=== PATIENT | male | born 1965 | race Caucasian/White ===

== ENCOUNTER → 2017-02-19 | Outpatient (CLI) | payer BC ==
[~2017-02-19] MED LIST: ASPI81TA28 PO; ESCI10TA17 PO; OMEP20TA PO; SIMV20TA2 PO
[2017-02-19 10:00] LABS: ALT/SGPT 39 U/L (12-78); AST/SGOT 21 U/L (15-37); BLOOD UREA NITROGEN 13 mg/dl (7-18); BUN/CREATININE RATIO 11.7 (10-20); CALCIUM 9.1 mg/dl (8.5-10.1); CARBON DIOXIDE 28 mmol/L (21-32); CHLORIDE 107 mmol/L (98-107); GLUCOSE 93 mg/dl (70-99); POTASSIUM 3.9 mmol/L (3.5-5.1); SODIUM 142 mmol/L (136-145)
[2017-02-19 10:03] LABS: ALB/GLOB RATIO 1.3 (0.9-2); ALKALINE PHOSPHATASE 81 U/L (45-117); CHOLESTEROL 174 mg/dl (0-200); CHOLESTEROL/HDL RATIO 5.1; HDL CHOLESTEROL 34 mg/dl; LDL CHOLESTEROL CALCULATED 110 mg/dl; TRIGLYCERIDES 149 mg/dl (0-150); VERY LOW DENSITY LIPOPROT CALC 30 mg/dl
== END | disposition home or self-care (01) ==
LOC: C.LAB 06:49
PROVIDERS: ATTEND Nurse Practitioner Family
DX: E78.00 Pure hypercholesterolemia, unspecified (principal)

== ENCOUNTER → 2017-03-31 | Outpatient (CLI) | payer BC ==
[~2017-03-31] MED LIST changes: +OPTIRAY 320 IV PRN
--- NOTE | 2017-03-31 09:52 | DIAGNOSTIC IMAGING REPORT ---
(CHEST) THORAX WITH HISTORY: 51 years Male PULMONARY NODULE follow-up study. COMPARISON: Chest radiographs 03/29/2009. No comparison chest CT is available at time of dictation. TECHNIQUE: Multiple axial CT images of the chest were obtained following the intravenous administration of 93 mL Optiray 320. FINDINGS: No dominant thyroid nodule is identified. Scattered calcified lymph nodes in the mediastinum are consistent with prior granulomatous disease. Heart is normal in size. Thoracic aorta appears to be within normal limits. There is no pneumothorax or pleural effusion. There is mild biapical pleural-parenchymal scarring. 4 mm noncalcified pulmonary nodule of the lateral basal segment left lower lobe is seen on image 200 of the thin section axial images. A 4 mm noncalcified pulmonary nodules also present within the apicoposterior segment left upper lobe on image 69 of the thin section axial series. There is a 4 mm noncalcified pulmonary nodule of the right upper lobe seen on image 98 of the axial series with adjacent mild tree-in-bud nodularity and groundglass opacities within this distribution suggesting associated bronchiolitis. 6 mm noncalcified nodule seen within the lateral basal segment right lower lobe on image 198. No large pulmonary nodules or masses are identified. Central airways are patent. Imaged upper abdominal structures are within normal limits. Soft tissues are unremarkable. The bones appear intact. IMPRESSION: 1. Several scattered noncalcified pulmonary nodules within the bilateral lungs are seen, largest of which measures 6 mm within the lateral basal segment right lower lobe. No CT is available for comparison at time of dictation. Follow-up according to the guidelines below is needed. 2. No acute cardiopulmonary process. 3. Scattered calcified mediastinal adenopathy compatible with prior granulomatous disease. Please refer to below summary of Fleischner criteria recommendations for follow-up of incidental CT nodules (Marina Martínez, Guidelines for management of small pulmonary nodules detected on CT scans: A statement from the Fleischner Society, Radiology 237: [phone].) SOLID NODULES Multiple nodules size: <6 mm * Low risk patients: no routine follow-up * high risk patients: optional CT at 12 months Note: newly detected indeterminate nodule in persons 35 years of age or older. * Low risk patients: minimal or absent history of smoking and/or other known risk factors * high risk patients: history of smoking or of other known risk factors (e.g. first degree relative with lung cancer, or exposure to asbestos, radon, uranium) * if a nodule up to 8 mm is partly solid or is ground glass further follow-up is required after 24 months to exclude possible slow growing adenocarcinoma (SVETLANA) The above report was generated using voice recognition software. It may contain grammatical, syntax or spelling errors. Electronically signed by: Freedom Flores M.D. 03/31/2017 9:50 AM Dictated Date/Time: 03/31/2017 9:40 AM
== END | disposition home or self-care (01) ==
LOC: C.CTS 09:03
PROVIDERS: ATTEND Nurse Practitioner Family
DX: R91.8 Other nonspecific abnormal finding of lung field (principal)

== ENCOUNTER → 2017-04-13 | Day surgery (SDC) | payer BC ==
[2017-03-31 09:56] VITALS: Ht 170.2 cm; Wt 68.2 kg
[~2017-04-13] VITALS: Ht 170.2 cm; Wt 68.2 kg
[~2017-04-13] MED LIST changes: +LIDOCAINE HCL 2% 2 ML VIAL (20MG/ML) ONE; -OPTIRAY 320 IV PRN; +PROPOFOL IV EMULSION 10 MG/ML 20 ML VIAL IV ONE
--- NOTE | 2017-04-13 14:12 | Endo History and Physical ---
History & Physical Date of Service: Apr 13, 2017. Chief Complaint: dysphagia,esophageal reflux disease Referring Physician: EDWARD Trinidad III History of Present Illness 52 yo CM who presents for EGD secondary to GERD and dysphagia. Past Surgical History Hx Cardiac Surgery: No Hx Internal Defibrillator: No Hx Pacemaker: No Hx Abdominal Surgery: No Hx of Implantable Prosthesis: No Hx Post-Op Nausea and Vomiting: No Hx Cancer Surgery: No Hx Thoracic Surgery: No Hx Orthopedic: No Hx Urinary Tract Surgery: No Family History None Social History Smoking Status: Never Smoker Hx Substance Use: No Hx Alcohol Use: No Allergies Coded Allergies: Penicillins (Verified Allergy, Mild, UNKNOWN - HAPPENED A CHILD, ) Current Medications Reported Home Medications Medications Dose Route/Sig Max Daily Dose Days Date Category Aspirin Ec (Aspirin) 81 Mg Tab 81 Mg PO DAILY 03/31/17 Reported Zocor (Simvastatin) 20 Mg Tab 20 Mg PO QPM 03/31/17 Reported Omeprazole 20 Mg Tab 1 Tab PO QAM 03/31/17 Reported Lexapro (Escitalopram Oxalate) 10 Mg Tab 10 Mg PO QAM 03/29/09 Reported Vital Signs Weight (Kilograms): 68.18 Height (Feet): 5 Height (Inches): 7 Date Time Temp Pulse Resp B/P (MAP) Pulse Ox O2 Delivery O2 Flow Rate FiO2 04/13/17 13:55 36.6 74 16 113/74 (87) 96 Room Air Physical Exam General Appearance: WD/WN, no apparent distress Respiratory/Chest: Auscultation: breath sounds normal Cardiovascular: Heart Auscultation: RRR Abdomen: Bowel Sounds: normal Inspection & Palpation: soft, non-distended, no tenderness, guarding & rebound Assessment and Plan Assessment: 52 yo CM who presents for EGD secondary to GERD and dysphagia. Plan: Proceed with EGD.
--- NOTE | 2017-04-13 14:40 | GI REPORT ---
Procedure Date: 04/13/2017 2:17 PM Procedure: Upper GI endoscopy Indications: Dysphagia, Suspected gastro-esophageal reflux disease Medicines: Monitored Anesthesia Care Complications: No immediate complications. Estimated Blood Loss: Estimated blood loss: none. Procedure: Pre-Anesthesia Assessment: - Prior to the procedure, a History and Physical was performed, and patient medications and allergies were reviewed. The patient's tolerance of previous anesthesia was also reviewed. The risks and benefits of the procedure and the sedation options and risks were discussed with the patient. All questions were answered, and informed consent was obtained. Prior Anticoagulants: The patient has taken aspirin, last dose was 1 day prior to procedure. ASA Grade Assessment: II - A patient with mild systemic disease. After reviewing the risks and benefits, the patient was deemed in satisfactory condition to undergo the procedure. After obtaining informed consent, the endoscope was passed under direct vision. Throughout the procedure, the patient's blood pressure, pulse, and oxygen saturations were monitored continuously. The scope was introduced through the mouth, and advanced to the second part of duodenum. The upper GI endoscopy was accomplished without difficulty. The patient tolerated the procedure well. Findings: A non-obstructing Schatzki ring (acquired) was found at the gastroesophageal junction. Biopsies were taken with a cold forceps for histology. A small hiatus hernia was present. The examined duodenum was normal. Impression: - Non-obstructing Schatzki ring. Biopsied. - Small hiatus hernia. - Normal examined duodenum. Recommendation: - Resume previous diet. - Continue present medications. - Await pathology results. - Return to GI clinic as previously scheduled. Louie Berger, DO 04/13/2017 2:39:30 PM This report has been signed electronically. Note Initiated On: 04/13/2017 2:17 PM I attest to the content of the Intraoperative Record and orders documented therein, exceptions below
--- NOTE | 2017-04-13 14:41 | Discharge Instructions ---
Endoscopy Patient Instructions Date / Procedure(s) Performed Apr 13, 2017. EGD Allergy Information Coded Allergies: Penicillins (Verified Allergy, Mild, UNKNOWN - HAPPENED A CHILD, ) Discharge Date / Findings Apr 13, 2017. Hiatal hernia Schatzki's Ring s/p biopsies Medication Instructions Stopped Medication(s): took ASA yesterday OK to resume all medications today as prescribed Reported Home Medications Medications Dose Route/Sig Max Daily Dose Days Date Category Aspirin Ec (Aspirin) 81 Mg Tab 81 Mg PO DAILY 03/31/17 Reported Zocor (Simvastatin) 20 Mg Tab 20 Mg PO QPM 03/31/17 Reported Omeprazole 20 Mg Tab 1 Tab PO QAM 03/31/17 Reported Lexapro (Escitalopram Oxalate) 10 Mg Tab 10 Mg PO QAM 03/29/09 Reported Provider Instructions Activity Restrictions - No exercising or heavy lifting for 24 hours. - Do not drink alcohol the day of the procedure. - Do not drive a car or operate machinery until the day after the procedure. - Do not make any important decisions or sign important papers in 24 hours after the procedure. Following Day: - Return to full activity which may include returning to work/school. Diet Start your diet with liquids and light foods (jello, soup, juice, toast). Then eat your usual diet if not nauseated. Treatment For Common After Affects For mild abdominal pain, bloating, or excessive gas: - Rest - Eat lightly - Lie on right side Follow-Up Information Follow-up with EDWARD Trinidad III as scheduled Anesthesia Information What You Should Know You have had a procedure that required some medicine to reduce anxiety and discomfort. This treatment is called moderate sedation. After receiving the treatment, you may be sleepy, but you will be able to breathe on your own. The effects of the treatment may last for several hours. Follow these instructions along with Activity/Diet recommendations noted above: * Do NOT do anything where dizziness or clumsiness would be dangerous. * Rest quietly at home today, then you can be up and about tomorrow. * Have a responsible person stay with you the rest of today. * You may have had an I.V. today. If so, you may take the dressing off later today. Recommendations Call your doctor if: * Trouble breathing * Continuous vomiting for more than 24 hours * Temperature above 101 degrees * Severe abdominal pain or bloating * Pain not relieved by pain medicine ordered * There is increased drainage or redness from any incision * A large amount of rectal bleeding greater than 2-3 tablespoons. (If you had a polyp/s removed or have hemorrhoids, a small amount of blood - from the rectum is to be expected.) * You have any unanswered questions or concerns. IN THE EVENT OF A SERIOUS EMERGENCY, GO TO THE NEAREST EMERGENCY ROOM Your discharge instructions were prepared by provider Louie Berger. Patient Instructions Signature Page Joni Arechiga Patient (or Guardian) Signature/Date: I have read and understand the instructions given to me by my caregivers. Caregiver/RN/Doctor Signature/Date: The above-named patient and/or guardian has received patient instructions on this date. + Original Patient Signature Page (only) stays with chart. Please make copy for patient.
[2017-04-13 15:15] VITALS: BP 105/73; PULSE 76; O2SAT 96
--- NOTE | 2017-04-13 15:16 | Anesthesiology Progress Note ---
Anesthesia Post Op Note Date & Time Apr 13, 2017 at 15:16 Vital Signs Pain Intensity: 0 Vital Signs Past 12 Hours Date Time Temp Pulse Resp B/P (MAP) Pulse Ox O2 Delivery O2 Flow Rate FiO2 04/13/17 14:58 74 20 101/71 (81) 96 Room Air 04/13/17 14:43 73 16 108/68 (81) 96 Room Air 04/13/17 13:55 36.6 74 16 113/74 (87) 96 Room Air Notes Mental Status: alert / awake / arousable, participated in evaluation Pt Amnestic to Procedure: Yes Nausea / Vomiting: adequately controlled Pain: adequately controlled Airway Patency, RR, SpO2: stable & adequate BP & HR: stable & adequate Hydration State: stable & adequate Anesthetic Complications: no major complications apparent
== END | disposition home or self-care (01) ==
LOC: C.GI 13:39
PROVIDERS: ATTEND Internal Medicine
DX: R13.10 Dysphagia, unspecified (principal); K22.2 Esophageal obstruction; K44.9 Diaphragmatic hernia without obstruction or gangrene; K21.9 Gastro-esophageal reflux disease without esophagitis; Z79.82 Long term (current) use of aspirin; M19.90 Unspecified osteoarthritis, unspecified site; F17.220 Nicotine dependence, chewing tobacco, uncomplicated

== ENCOUNTER → 2018-04-05 | Outpatient (CLI) | payer OTHER ==
[~2018-04-05] MED LIST changes: -LIDOCAINE HCL 2% 2 ML VIAL (20MG/ML) ONE; +OPTIRAY 320 IV PRN; -PROPOFOL IV EMULSION 10 MG/ML 20 ML VIAL IV ONE
[2018-04-05 09:18] LABS: HEMOGLOBIN A1C 5.5 % (4.5-5.6)
--- NOTE | 2018-04-05 09:23 | DIAGNOSTIC IMAGING REPORT ---
CHEST CT WITH CONTRAST CT DOSE: 283.64 mGy.cm HISTORY: Follow-up study in a patient with pulmonary nodules R91.8 Multiple pulmonary nodulesPulmonary Nodule Study. Perform TECHNIQUE: Multiaxial CT images of the chest were performed following the intravenous administration of contrast. A dose lowering technique was utilized adhering to the principles of ALARA. COMPARISON: CT chest 03/31/2018 FINDINGS: Homogeneous thyroid. Multiple calcified mediastinal and hilar lymph nodes redemonstrated. Heart is normal in size without pericardial effusion. Coronary arterial calcifications are noted. The thoracic aorta is normal in both course and caliber without aneurysm or dissection. The imaged great vessels appear patent. The pulmonary arterial tree is opacified to level of the subsegmental branches and demonstrates no focal filling defects to suggest pulmonary thromboembolic disease. No pneumothorax or pleural effusion. Subsegmental dependent groundglass opacities suggest atelectasis. There is mild bilateral bronchial wall thickening. There is redemonstration of multiple scattered multilobar solid pulmonary nodules, largest of which measures 6 mm within the basal right lower lobe, image 179 series 4. Nodules in the upper lobes measuring up to 4 mm within the left upper lobe are also stable (please see bookmarks) no new or enlarging pulmonary nodules are identified. Central airways are patent. Severe generalized pancreatic atrophy. No acute process of the imaged upper abdomen. Bones appear intact. IMPRESSION: 1. No acute intrathoracic abnormality identified. 2. Multiple scattered solid pulmonary nodules in a multilobar distribution throughout the bilateral lungs redemonstrated measuring up to 6 mm within the lateral basal segment right lower lobe. These appear stable in size and appearance from study dated 03/31/2017 without new or enlarging nodules identified. Follow-up guidelines are provided below. 3. Mild bilateral bronchial wall thickening may reflect bronchitis. 4. Prior granulomatous disease. 5. Severe generalized pancreatic atrophy. Please refer to below summary of Fleischner criteria recommendations for follow-up of incidental CT nodules (Marina Martínez, Guidelines for management of small pulmonary nodules detected on CT scans: A statement from the Fleischner Society, Radiology 237: [phone].) SOLID NODULES Multiple nodules size: <6 mm * Low risk patients: no routine follow-up * high risk patients: optional CT at 12 months Multiple nodules size: 6-8 mm * Low risk patients: follow-up at 3-6 months, then consider further follow-up at 18-24 months * high risk patients: follow-up at 3-6 months, then at 18-24 months if no change Note: newly detected indeterminate nodule in persons 35 years of age or older. * Low risk patients: minimal or absent history of smoking and/or other known risk factors * high risk patients: history of smoking or of other known risk factors (e.g. first degree relative with lung cancer, or exposure to asbestos, radon, uranium) * if a nodule up to 8 mm is partly solid or is ground glass further follow-up is required after 24 months to exclude possible slow growing adenocarcinoma (SVETLANA) The above report was generated using voice recognition software. It may contain grammatical, syntax or spelling errors. Electronically signed by: Freedom Flores M.D. 04/05/2018 9:22 AM Dictated Date/Time: 04/05/2018 9:12 AM
[2018-04-05 09:30] LABS: ALBUMIN 4.1 gm/dl (3.4-5.0); ALKALINE PHOSPHATASE 67 U/L (45-117); ALT/SGPT 38 U/L (12-78); AST/SGOT 23 U/L (15-37); BLOOD UREA NITROGEN 15 mg/dl (7-18); CALCIUM 9.1 mg/dl (8.5-10.1); CARBON DIOXIDE 27 mmol/L (21-32); CHOLESTEROL 174 mg/dl (0-200); CREATININE 1.01 mg/dl (0.60-1.40); GLUCOSE 100 mg/dl (70-99); LDL CHOLESTEROL CALCULATED 100 mg/dl; POTASSIUM 3.7 mmol/L (3.5-5.1); SODIUM 140 mmol/L (136-145); TOTAL PROTEIN 7.4 gm/dl (6.4-8.2)
== END | disposition home or self-care (01) ==
LOC: C.CTS 08:37
PROVIDERS: ATTEND Nurse Practitioner Family
DX: R91.8 Other nonspecific abnormal finding of lung field (principal)

== ENCOUNTER → 2018-04-30 | Day surgery (SDC) | payer BC, OTHER ==
[2018-04-27 09:18] VITALS: Ht 170.2 cm; Wt 72.7 kg
[~2018-04-30] VITALS: Ht 170.2 cm; Wt 72.7 kg
[~2018-04-30] MED LIST changes: +CRIS2OIN TD; +LIDOCAINE HCL 2% 2 ML VIAL (20MG/ML) ONE; +MIDAZOLAM HCL 1 MG/ML 2ML VIAL ONE; -OPTIRAY 320 IV PRN; +PROPOFOL IV EMULSION 10 MG/ML 20 ML VIAL ONE; -SIMV20TA2 PO; +SIMV40TA4 PO; +SODIUM CHLORIDE 0.9% 500ML 500 ML IV ONE; +TRMO2580 TOP
--- NOTE | 2018-04-30 09:52 | Endo History and Physical ---
History & Physical Date of Service: Apr 30, 2018. Chief Complaint: Screening Referring Physician: Flor History of Present Illness 53 yo CM who presents for screening colonoscopy. Past Surgical History Hx Cardiac Surgery: No Hx Internal Defibrillator: No Hx Pacemaker: No Hx Abdominal Surgery: No Hx of Implantable Prosthesis: No Hx Post-Op Nausea and Vomiting: No Hx Cancer Surgery: No Hx Thoracic Surgery: No Hx Orthopedic: No Hx Urinary Tract Surgery: No Family History None Social History Smoking Status: Never Smoker Hx Substance Use: No Hx Alcohol Use: Yes (RARELY) Allergies Coded Allergies: Penicillins (Verified Allergy, Mild, UNKNOWN - HAPPENED A CHILD, ) Current Medications Reported Home Medications Medications Dose Route/Sig Max Daily Dose Days Date Category Triamcinolone Acet 0.025% (Triamcinolone Acetonide (Topic) 0.025 % Oin 1 Appln TOP BID 04/27/18 Reported Eucrisa (Crisaborole) 2 % Oin 1 Appln TD DAILY 04/27/18 Reported Zocor (Simvastatin) 40 Mg Tab 40 Mg PO QPM 04/27/18 Reported Omeprazole 20 Mg Tab 1 Tab PO DAILY 04/27/18 Reported Aspirin Ec (Aspirin) 81 Mg Tab 81 Mg PO DAILY 03/31/17 Reported Lexapro (Escitalopram Oxalate) 10 Mg Tab 10 Mg PO QAM 03/29/09 Reported Vital Signs Weight (Kilograms): 72.73 Height (Feet): 5 Height (Inches): 7 Date Time Temp Pulse Resp B/P (MAP) Pulse Ox O2 Delivery O2 Flow Rate FiO2 04/30/18 09:15 36.9 86 18 126/81 (96) 97 Room Air Physical Exam General Appearance: WD/WN, no apparent distress Respiratory/Chest: Auscultation: breath sounds normal Cardiovascular: Heart Auscultation: RRR Abdomen: Bowel Sounds: normal Inspection & Palpation: soft, non-distended, no tenderness, guarding & rebound Assessment and Plan Assessment: 53 yo CM who presents for screening colonoscopy. Plan: Proceed with colonoscopy.
--- NOTE | 2018-04-30 10:38 | Discharge Instructions ---
Endoscopy Patient Instructions Date / Procedure(s) Performed Apr 30, 2018. Colonoscopy Allergy Information Coded Allergies: Penicillins (Verified Allergy, Mild, UNKNOWN - HAPPENED A CHILD, ) Discharge Date / Findings Apr 30, 2018. Colon polyp Internal hemorrhoids Medication Instructions Stopped Medication(s): ASA last 04/28/18 OK to resume all medications today as prescribed Reported Home Medications Medications Dose Route/Sig Max Daily Dose Days Date Category Triamcinolone Acet 0.025% (Triamcinolone Acetonide (Topic) 0.025 % Oin 1 Appln TOP BID 04/27/18 Reported Eucrisa (Crisaborole) 2 % Oin 1 Appln TD DAILY 04/27/18 Reported Zocor (Simvastatin) 40 Mg Tab 40 Mg PO QPM 04/27/18 Reported Omeprazole 20 Mg Tab 1 Tab PO DAILY 04/27/18 Reported Aspirin Ec (Aspirin) 81 Mg Tab 81 Mg PO DAILY 03/31/17 Reported Lexapro (Escitalopram Oxalate) 10 Mg Tab 10 Mg PO QAM 03/29/09 Reported Provider Instructions Activity Restrictions - No exercising or heavy lifting for 24 hours. - Do not drink alcohol the day of the procedure. - Do not drive a car or operate machinery until the day after the procedure. - Do not make any important decisions or sign important papers in 24 hours after the procedure. Following Day: - Return to full activity which may include returning to work/school. Diet Start your diet with liquids and light foods (jello, soup, juice, toast). Then eat your usual diet if not nauseated. Treatment For Common After Affects For mild abdominal pain, bloating, or excessive gas: - Rest - Eat lightly - Lie on right side Follow-Up Information Follow-up with Flor as scheduled Anesthesia Information What You Should Know You have had a procedure that required some medicine to reduce anxiety and discomfort. This treatment is called moderate sedation. After receiving the treatment, you may be sleepy, but you will be able to breathe on your own. The effects of the treatment may last for several hours. Follow these instructions along with Activity/Diet recommendations noted above: * Do NOT do anything where dizziness or clumsiness would be dangerous. * Rest quietly at home today, then you can be up and about tomorrow. * Have a responsible person stay with you the rest of today. * You may have had an I.V. today. If so, you may take the dressing off later today. Recommendations Call your doctor if: * Trouble breathing * Continuous vomiting for more than 24 hours * Temperature above 101 degrees * Severe abdominal pain or bloating * Pain not relieved by pain medicine ordered * There is increased drainage or redness from any incision * A large amount of rectal bleeding greater than 2-3 tablespoons. (If you had a polyp/s removed or have hemorrhoids, a small amount of blood - from the rectum is to be expected.) * You have any unanswered questions or concerns. IN THE EVENT OF A SERIOUS EMERGENCY, GO TO THE NEAREST EMERGENCY ROOM Your discharge instructions were prepared by provider Louie Berger. Patient Instructions Signature Page Joni Arechiga Patient (or Guardian) Signature/Date: I have read and understand the instructions given to me by my caregivers. Caregiver/RN/Doctor Signature/Date: The above-named patient and/or guardian has received patient instructions on this date. + Original Patient Signature Page (only) stays with chart. Please make copy for patient.
--- NOTE | 2018-04-30 10:45 | GI REPORT ---
Patient Name: Joni Arechiga Procedure Date: 04/30/2018 9:39 AM Date of : 1965 Admit Type: Outpatient Age: 53 Gender: Male Attending MD: Louie Berger DO Procedure: Colonoscopy Providers: Louie Berger DO Referring MD: Nikhil Ray Indications: Screening for colorectal malignant neoplasm Medicines: Monitored Anesthesia Care Complications: No immediate complications. Estimated Blood Loss: Estimated blood loss: none. Procedure: Pre-Anesthesia Assessment: - Prior to the procedure, a History and Physical was performed, and patient medications and allergies were reviewed. The patient's tolerance of previous anesthesia was also reviewed. The risks and benefits of the procedure and the sedation options and risks were discussed with the patient. All questions were answered, and informed consent was obtained. Prior Anticoagulants: The patient has taken aspirin, last dose was 2 days prior to procedure. ASA Grade Assessment: II - A patient with mild systemic disease. After reviewing the risks and benefits, the patient was deemed in satisfactory condition to undergo the procedure. After I obtained informed consent, the scope was passed under direct vision. Throughout the procedure, the patient's blood pressure, pulse, and oxygen saturations were monitored continuously. The scope was introduced through the anus and advanced to the terminal ileum. The colonoscopy was performed without difficulty. The patient tolerated the procedure well. The quality of the bowel preparation was good. The terminal ileum, ileocecal valve, appendiceal orifice, and rectum were photographed. Findings: The perianal and digital rectal examinations were normal. A 4 mm polyp was found in the ascending colon. The polyp was sessile. The polyp was removed with a cold snare. Resection and retrieval were complete. Non-bleeding internal hemorrhoids were found during retroflexion. The hemorrhoids were small. Impression: - One 4 mm polyp in the ascending colon, removed with a cold snare. Resected and retrieved. - Non-bleeding internal hemorrhoids. Recommendation: - Resume previous diet. - Continue present medications. - Repeat colonoscopy for surveillance based on pathology results. - Return to primary care physician as previously scheduled. Louie Berger DO 04/30/2018 10:44:31 AM This report has been signed electronically. Note Initiated On: 04/30/2018 9:39 AM Number of Addenda: 0 I attest to the content of the Intraoperative Record and orders documented therein, exceptions below {[id number]}
[2018-04-30 10:47] VITALS: BP 118/89; PULSE 78; O2SAT 97
--- NOTE | 2018-04-30 10:55 | Anesthesiology Progress Note ---
Anesthesia Post Op Note Date & Time Apr 30, 2018 at 10:54 Vital Signs Pain Intensity: 0 Vital Signs Past 12 Hours Date Time Temp Pulse Resp B/P (MAP) Pulse Ox O2 Delivery O2 Flow Rate FiO2 04/30/18 10:47 78 18 118/89 (99) 97 Room Air 04/30/18 10:33 80 18 106/67 (80) 98 Room Air 04/30/18 10:18 36.8 86 14 100/69 (79) 97 Room Air 04/30/18 09:15 36.9 86 18 126/81 (96) 97 Room Air Notes Mental Status: alert / awake / arousable, participated in evaluation Pt Amnestic to Procedure: Yes Nausea / Vomiting: adequately controlled Pain: adequately controlled Airway Patency, RR, SpO2: stable & adequate BP & HR: stable & adequate Hydration State: stable & adequate Anesthetic Complications: no major complications apparent
== END | disposition home or self-care (01) ==
LOC: C.GI 09:01
PROVIDERS: ATTEND Internal Medicine
DX: Z12.11 Encounter for screening for malignant neoplasm of colon (principal); K63.5 Polyp of colon; K64.8 Other hemorrhoids; K21.9 Gastro-esophageal reflux disease without esophagitis; M19.90 Unspecified osteoarthritis, unspecified site; Z88.0 Allergy status to penicillin